=== PATIENT | male | born 1960 | race Caucasian/White ===

== ENCOUNTER → 2018-11-16 16:38 | Outpatient (CLI) | payer SELFPAY ==
[2018-11-16 17:48] LABS: Cholesterol 155 mg/dL (200); Creatinine, Serum 0.76 mg/dL (0.70-1.30); EST Glomerular Filtration Rate 112 mL/min (>60); Est Glom Filt Rate - Afr Amer 135 mL/min (>60)
== END ==
PROVIDERS: Family Provider Family Medicine; PCP Family Medicine; Referring Provider Family Medicine; Visit Provider Family Medicine
DX: I10 Essential (primary) hypertension (principal)
CPT/HCPCS: 36415; 82465; 82565; 84132

== ENCOUNTER → 2019-10-04 16:31 | Outpatient (CLI) | payer SELFPAY ==
[2019-10-04 18:11] LABS: Creatinine, Serum 0.75 mg/dL (0.70-1.30); EST Glomerular Filtration Rate 113 mL/min (>60); Est Glom Filt Rate - Afr Amer 137 mL/min (>60)
== END ==
PROVIDERS: PCP Family Medicine; Referring Provider Family Medicine; Visit Provider Family Medicine
DX: I10 Essential (primary) hypertension (principal)
CPT/HCPCS: 36415; 82565; 84132

== ENCOUNTER 2022-07-24 01:07 | Emergency (ER) | payer OTHER, SELFPAY ==
[2022-07-24 01:07] VITALS: BP 189/115; PULSE 95; RESP 18; TEMP 36.8; O2SAT 96; BMI 22.7
[2022-07-24 01:15] VITALS: BP 183/99; PULSE 93; RESP 13; O2SAT 98
--- NOTE | 2022-07-24 01:34 | EKG12_ITS ---
Test Reason : CP Blood Pressure : / mmHG Vent. Rate : 091 BPM Atrial Rate : 091 BPM P-R Int : 172 ms QRS Dur : 088 ms QT Int : 344 ms P-R-T Axes : 078 -83 069 degrees QTc Int : 423 ms Normal sinus rhythm Left axis deviation Low voltage QRS Abnormal ECG Confirmed by OCDEY WILLIS, MANDY ([id number]), senior editor HOLLEY MOLINA ([id number]) on 07/27/2022 11:55:57 AM Referred By: WERNER Confirmed By:MANDY ALEGRE MD
--- NOTE | 2022-07-24 01:34 | CT_ITS ---
EXAM: CT ANGIOGRAPHY CHEST, ABDOMEN AND PELVIS WITH INTRAVENOUS CONTRAST CLINICAL INDICATION: ? Dissection TECHNIQUE: Helically acquired angiography images were obtained of the chest, abdomen and pelvis with intravenous contrast. This CT exam was performed using one or more of the following dose reduction techniques: automated exposure control, adjustment of the mA and/or kV according to patient size, and/or use of iterative reconstruction technique. This report was created using [employer] report generation technology. MIP reconstructed images were created and reviewed. CONTRAST: IV 100mL [id number] RADIATION DOSE: Total DLP: 769.58 mGy-cm. COMPARISON: None. FINDINGS: VASCULATURE: AORTA: Minimally calcific thoracic aorta. Mild-moderate atherosclerotic calcification of the abdominal aorta. Normal in caliber. No dissection. PULMONARY ARTERIES: Unremarkable. Normal in caliber. No obvious central pulmonary embolism although this study was not performed with the pulmonary embolism protocol. GREAT VESSELS OF AORTIC ARCH: Unremarkable. Normal in caliber. No dissection. CELIAC TRUNK AND MESENTERIC ARTERIES: Calcified plaque near the origin of the celiac axis does not cause hemodynamically significant stenosis. No acute findings. No occlusion or significant stenosis. No dissection. Very small caliber BLAS which enhances normally. RENAL ARTERIES: No acute findings. No occlusion or significant stenosis. No dissection. ILIAC ARTERIES: Extensive atherosclerotic calcification within the common, external iliac and internal iliac arteries. Less than 50% stenosis of the common iliac and external iliac arteries by calcified plaques. Greater than 50% stenosis at the origin of both internal iliac arteries. Calcified plaques also less than 50 % stenosis of the common femoral arteries. The visualized superficial and deep femoral arteries show no hemodynamically significant stenosis. CHEST: LUNGS AND PLEURAL SPACES: Pulmonary emphysema, including numerous emphysematous blebs and bullae within the upper lungs. Peribronchial cuffing bilaterally, indicating bronchial wall inflammation. Calcified granulomas. Tiny circumscribed noncalcified nodule abutting the posterior-lateral pleura of the right lower lobe, consistent with a benign noncalcified granuloma, which requires no follow-up. No consolidation or edema. No pleural effusion or thickening. No pneumothorax. HEART: Extensive coronary artery calcification. Heart size is normal. No significant pericardial effusion. MEDIASTINUM: Findings of remote granulomatous infection. No mediastinal or hilar adenopathy. Esophagus is unremarkable. No hiatal hernia. THYROID: Solitary circumscribed 8 mm hypoattenuating nodule in the left thyroid lobe, which requires no follow-up. ABDOMEN: LIVER: Fatty infiltration. Portal veins and hepatic veins enhance normally. Homogeneous. No focal mass. GALLBLADDER AND BILE DUCTS: Unremarkable. No calcified gallstones. No gallbladder distention or wall edema. No intra- or extrahepatic biliary ductal dilation. PANCREAS: Unremarkable. No focal cystic or solid mass. SPLEEN: Unremarkable. Normal size without focal cystic or solid mass. ADRENALS: Unremarkable. No nodules. KIDNEYS AND URETERS: Unremarkable. Normal renal size and position. No hydronephrosis. No renal or obstructing ureteral stones. STOMACH AND BOWEL: Unremarkable. No stomach or bowel distention. No focal inflammatory change. PELVIS: APPENDIX: Normal. No evidence of acute appendicitis. BLADDER: Base of the bladder is indented by the prostate gland. Bladder wall is not thickened. REPRODUCTIVE: Prostate gland measures 4.8 cm in diameter. No mass. CHEST, ABDOMEN and PELVIS: INTRAPERITONEAL SPACE: Unremarkable. No ascites or other fluid collection. No free air. BONES/JOINTS: No suspicious lytic or blastic abnormality. No acute fracture. Lower lumbar facet arthritis. Degenerative narrowing of the mid thoracic disc spaces with surrounding osteophytes. 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 SOFT TISSUES: Unremarkable. No discrete abdominal or pelvic wall hernia. LYMPH NODES: Unremarkable. No enlarged lymph nodes. CT/CTA Chst, Abd, Pel W and/or WO IMPRESSION: No aortic aneurysm or dissection. Negative for PE. Findings of pulmonary emphysema and bronchitis. No pneumonia. Extensive coronary artery calcification. No acute intra-abdominal abnormality. Electronically Signed: Hayes Lechuga MD at 2:59 EST ,
[2022-07-24] MEDS: 0.9% Normal Saline 1,000 ML 999 ML IV (01:41)
[2022-07-24] MEDS: Morphine 4 MG/ML Syringe IV (01:42)
[2022-07-24] MEDS: Ondansetron 4 MG/2 ML Vial IV (01:42)
--- NOTE | 2022-07-24 01:47 | EDS_ITS ---
HPI History of Present Illness Chief Complaint: Chest Pain Narrative Narrative: Patient is a 61-year-old male with past medical history of hypertension hyperlipidemia and smoking and presbycusis. He states he went to bed around 9 PM this evening and fell asleep wearing a shirt. He states he woke up at 11 and as he was taking his shirt off developed sharp pain in his mid upper back. He states within about 10 minutes he began to shoot through his back into his chest and then up towards his neck. He states that the pain has been persistent for about 2 hours now and he is concerned about possible heart attack. He states that there is been no nausea vomiting diaphoresis or shortness of breath associated with this. [facility] Medical History Hypertension Home Medications lisinopril 5 mg tablet 5 mg PO DAILY 07/24/22 [History Last Taken Unknown] Allergy/AdvReac Type Severity Reaction Status Date / Time No Known Allergies Allergy Verified 07/24/22 01:09 Social History Smoking Status: Current every day smoker tobacco type: cigarettes ROS ROS ED Constitutional Constitutional ED: Denies chills or fever(s) ENT ENT ED: Denies sore throat Cardiovascular Cardiovascular: Reports chest pain; Denies palpitations or racing heartbeat Respiratory/Chest Respiratory/Chest: Denies cough or dyspnea Gastrointestinal Gastrointestinal: Denies abdominal pain, diarrhea, nausea or vomiting Genitourinary Genitourinary ED: Denies dysuria Musculoskeletal Musculoskeletal: Reports back pain; Denies myalgias Integumentary Denies rash Neurologic Neurologic: Denies headache(s) Hematologic/Lymphatic Hematologic/Lymphatic: Denies easy bleeding or easy bruising EXAM Physical Exam Const Vital Signs: 07/24/22 01:07 07/24/22 01:07 07/24/22 01:13 Temperature 98.3 F Temperature Source Temporal Pulse Rate 95 Respiratory Rate 18 Respiratory Effort Short of Breath Blood Pressure 189/115 H Blood Pressure Mean 139 Pulse Ox 96 Oxygen Delivery Method Room Air 07/24/22 01:15 Temperature Temperature Source Pulse Rate 93 Respiratory Rate 13 Respiratory Effort Blood Pressure 183/99 H Blood Pressure Mean 127 Pulse Ox 98 Oxygen Delivery Method Room Air Positive well nourished and well developed General Appearance ED: well developed HEENT Reports moist mucous membranes HEENT Narrative: No tongue or lip swelling no oral lesions no secondary changes to suggest infection in the posterior pharynx Eyes PERRL and EOMs intact bilaterally Neck supple and no JVD Resp normal respiratory effort Resp Narrative: Breath sounds are diminished throughout with faint rhonchi in the bilateral bases consistent with smoking history but no signs of respiratory distress Cardio regular rate and regular rhythm Rate: other Other Details: Radial pulses are plus 2 out of 4 bilaterally are equal and symmetric Carotid pulses are equal and symmetric as well GI normal to inspection, nondistended, normoactive bowel sounds, non-tender and non-distended GI Narrative: No voluntary guarding or rigidity no pulsatile mass Auscultation: normoactive bowel sounds Palpation: soft Back/Spine Back/Spine Narrative: No bony deformity or step-off of the thoracic or lumbar spine no midline pain on palpation Extremity normal to inspection Extremity Narrative: No asymmetric edema no pitting edema negative Homans' sign bilaterally Neuro oriented x3 and CN's II-XII intact bilaterally Sensorium / Orientation: alert Psych mental status grossly normal Skin no rashes or lesions noted Skin Narrative: No overlying soft tissue skin changes to suggest trauma or infection MDM MDM MDM Narrative Medical decision making narrative: Patient presented to the ER hypertensive and was complaining of sudden onset chest pain that began in his upper back and went straight through into his chest. With this history there is concern he is having a dissection and secondary to basic labs and a CTA of the chest abdomen pelvis were obtained. With the possibility of bleeding I held off on providing aspirin as this could not be worsening his symptoms. EKG was sinus rhythm initial troponin was normal at 5 and the 2-hour delta stayed flat with only a one-point elevation to a value of 6. The patient CTA revealed no acute findings. His white count is elevated but as his CT reveals no acute infectious changes I feel this is stress response do not feel he needs further evaluated. On reevaluation the patient has reported resolution of his symptoms with IV hydration and morphine. His blood pressure is normalized as well. Therefore at this time as EKG and troponins indicate no signs of acute cardiac event and his CTA reveals no dissection PE or infection and has had improvement of symptoms he is otherwise safe for discharge. Lab Data Attestation: I reviewed the patient's lab results. Labs: Laboratory Results - last 24 hr 07/24/22 07/24/22 07/24/22 01:12 01:12 01:12 WBC 16.3 H RBC 4.87 Hgb 16.0 Hct 47.1 MCV 96.7 H MCH 32.9 H MCHC 34.0 RDW Std Deviation 42.8 RDW Coeff of Rosalie 11.9 Plt Count 301 MPV 9.2 Immature Gran % (Auto) 0.500 Neut % (Auto) 58.4 Lymph % (Auto) 28.3 Hockley % (Auto) 8.8 Eos % (Auto) 3.3 Baso % (Auto) 0.7 Absolute Neuts (auto) 9.5 H Absolute Lymphs (auto) 4.60 H Nucleated RBC % 0 PT 12.7 INR 1.0 APTT 29.1 Sodium 141 Potassium 3.8 Chloride 106 Carbon Dioxide 28.0 Anion Gap 7 BUN 13 Creatinine 0.83 Estim Creat Clear Calc 92.27 Est GFR (MDRD) Af Amer 121 Est GFR (MDRD) Non-Af 100 BUN/Creatinine Ratio 15.7 Glucose 100 Calcium 9.5 Total Bilirubin 0.30 Direct Bilirubin 0.12 AST 22 ALT 21 Alkaline Phosphatase 66 Troponin I High Sens 5 Total Protein 8.0 Albumin 4.0 Globulin 4.0 Lipase 219 07/24/22 03:01 WBC RBC Hgb Hct MCV MCH MCHC RDW Std Deviation RDW Coeff of Rosalie Plt Count MPV Immature Gran % (Auto) Neut % (Auto) Lymph % (Auto) [place] % (Auto) Eos % (Auto) Baso % (Auto) Absolute Neuts (auto) Absolute Lymphs (auto) Nucleated RBC % PT INR APTT Sodium Potassium Chloride Carbon Dioxide Anion Gap BUN Creatinine Estim Creat Clear Calc Est GFR (MDRD) Af Amer Est GFR (MDRD) Non-Af BUN/Creatinine Ratio Glucose Calcium Total Bilirubin Direct Bilirubin AST ALT Alkaline Phosphatase Troponin I High Sens 6 Total Protein Albumin Globulin Lipase Radiography Diagnostic Testing: Clinical Impression(s) from Imaging Studies Chest/Abdomen/Pelvis CTA 07/24/22 01:34 IMPRESSION: No aortic aneurysm or dissection. Negative for PE. Findings of pulmonary emphysema and bronchitis. No pneumonia. Extensive coronary artery calcification. No acute intra-abdominal abnormality. Electronically Signed: Hayes Lechuga MD at 2:59 EST , Discharge Plan Triage Chief Complaint: Chest Pain ED Provider: Hayden Coleman Dx/Rx/DC Orders Clinical Impression: Nonspecific chest pain, GERD (gastroesophageal reflux disease), Hypertension Instructions: ED Chest Pain, Noncardiac, ED GERD (Adult) Prescriptions: No Action lisinopril 5 mg Tablet 5 mg PO DAILY Primary Care Provider: Quinten Inman Referrals: Quinten Inman MD [Primary Care Provider] - Activity Restrictions/Additional Instructions: Please continue your home medications as directed by your family doctor and return to the ER should you have any further concerns Disposition Disposition: Home, Self Care
[2022-07-24 01:52] LABS: Absolute Neutrophil Count 9.5 X10^3/uL (2.0-7.7); Basophil# 0.12 X10^3/uL; Basophil% 0.7 % (0-1); Eosinophil# 0.54 X10^3/uL; Eosinophils% 3.3 % (0-5); Hematocrit 47.1 % (40-54); Lymphocyte % 28.3 % (19-41); Mean Corpuscular Hgb 32.9 pg (27.0-32.0); Mean Corpuscular Volume 96.7 fL (80-94); Mean Platelet Vol. 9.2 fl (6.2-12.0); Monocyte# 1.44 X10^3/uL; Monocyte% 8.8 % (0-10); NRBC Flagged by Analyzer 0 % (0-5); Neutrophil % 58.4 % (47-70); Platelet Count 301 K/mm3 (150-450); RBC Distribution Width CV 11.9 % (11.6-14.6); RBC Distribution Width SD 42.8 fl (35.1-43.9); Red Blood Count 4.87 M/mm3 (4.6-6.2); White Blood Count 16.3 K/mm3 (4.4-11.0)
[2022-07-24 02:06] LABS: Prothrombin Time (Protime)PT. 12.7 SECONDS (11.7-14.9)
[2022-07-24 02:07] LABS: Partial Thromboplast Time 29.1 Seconds (24.1-36.2)
[2022-07-24 02:18] LABS: AST(SGOT) 22 U/L (15-37); Alanine Aminotransfer ALT/SGPT 21 U/L (16-61); Alkaline Phosphatase 66 U/L (45-117); Anion Gap 7 (5-15); BUN 13 mg/dL (7-18); BUN/Creat Ratio 15.7 RATIO (10-20); Bilirubin, Direct 0.12 mg/dL (0.00-0.30); Calcium,Total 9.5 mg/dL (8.5-10.1); Chloride 106 mmol/L (98-107); Creatinine, Serum 0.83 mg/dL (0.70-1.30); EST Glomerular Filtration Rate 100 mL/min (>60); Est Glom Filt Rate - Afr Amer 121 mL/min (>60); Estimated Creatinine Clearance 92.27 ml/min; Glucose 100 mg/dL (74-106); Lipase 219 U/L (73-393); Potassium 3.8 mmol/L (3.5-5.1); Sodium Level 141 mmol/L (136-145); Troponin-I HS 5 pg/mL (3.0-78.0)
[2022-07-24 03:29] LABS: Troponin-I HS 6 pg/mL (3.0-78.0)
[2022-07-24 03:40] VITALS: BP 117/82; PULSE 89; RESP 18; O2SAT 96
== END 2022-07-24 03:42 | disposition home or self-care (01) ==
PROVIDERS: Emergency Provider Emergency Medicine; PCP Family Medicine; Visit Provider Emergency Medicine
DX: R07.9 Chest pain, unspecified (principal); K21.9 Gastro-esophageal reflux disease without esophagitis; I10 Essential (primary) hypertension; F17.210 Nicotine dependence, cigarettes, uncomplicated; Z79.899 Other long term (current) drug therapy
CPT/HCPCS: 71275; 74174; 80048; 80076; 83690; 84484; 85025; 85610; 85730; 93005; 96374; 96375; 99283; J7030; Q9967; A4216; J2405

== ENCOUNTER → 2025-04-16 | Outpatient (CLI) | payer OTHER, SELFPAY ==
[2025-04-16 13:18] LABS: AST(SGOT) 21 U/L (<=37); Alanine Aminotransfer ALT/SGPT 8 U/L (<=46); Albumin, Serum 4.2 g/dL (3.4-4.8); Alkaline Phosphatase 65 U/L (40-129); Anion Gap 11 (5-15); BUN 8 mg/dL (4-19); BUN/Creat Ratio 12.7 RATIO (10-20); Calcium,Total 9.9 mg/dL (7.6-11.0); Carbon Dioxide 27.7 mmol/L (21.0-32.0); Chloride 101 mmol/L (98-108); Cholesterol 157 mg/dL (<=200); Globulin 2.9 g/dL (2.2-4.2); Glucose 85 mg/dL (70-99); Low Density Lipoprotein Calc. 78 mg/dL; Potassium 4.4 mmol/L (3.3-5.1); Triglycerides 53 mg/dL; Very Low Density Lipoprotein 11 mg/dL (5-40); cholesterol:hdl ratio screen 2.29
--- OUTSIDE RECORDS SUMMARY | 2025-04-16 17:12 | XMS RPT_ITS | CCD ---
Author Organization [facility] CliniSywi Care Team Providers Care It Architecture Consultant Name Role Phone McMorrow CONDUCTOR/ENGINEER, Andreas Attending Unavailable Quinten Inman Primary Care Unavailable Medications Current Medications Medication Drug Class(es) Dates Sig (Normalized) Sig (Original) lisinopril 5 mg oral tablet (1 source) Angiotensin Converting Enzyme Inhibitor Start: 07-24-2022 take 5 mg by mouth once daily Lisinopril Active 5 MG PO DAILY July 24, 2022 12:00am Problems Problem Classification Problem Date Documented Da te Episodic/Chronic Esophageal disorders (1 source) Gastroesophageal reflux disease; Translations: [Gastro-esophageal reflux disease without esophagitis] Chronic Essential hypertension (1 source) Hypertensive disorder; Translations: [Essential (primary) hypertension] Chronic Nonspecific chest pain (1 source) Chest pain; Translations: [Chest pain, unspecified] Episodic Results Test Name Value Interpretation Reference Range Facil ity Comprehensive Metabolic Prof martinez 04-16-2025 Albumin [Mass/Vol] 4.2 g/dL Normal 3.4-4.8 [facility] Comment on above: Order Comment: Order Date: 04/12/25 Order Info: [id number] - CMP Order Info: [id number] - LIPID Comments: screening for cholesterol screening for cholesterol Performed By: #### L [id number] #### [facility] [address] [place], [place], [id number] Albumin/Globulin [Mass ratio] 1.4 {ratio} Normal 0.9-2.4 [facility] Comment on above: Order Comment: Order Date: 04/12/25 Order Info: [id number] - CMP Order Info: [id number] - LIPID Comments: screening for cholesterol screening for cholesterol Performed By: #### L [id number] #### [facility] [address] [place], [address] ALK PHOS 65 U/L Normal 40-129 [facility] Comment on above: Order Comment: Order Date: 04/12/25 Order Info: [id number] - CMP Order Info: [id number] - LIPID Comments: screening for cholesterol screening for cholesterol Performed By: #### L [id number] #### [facility] [address] [place], [address] ALT [Catalytic activity/Vol] 8 U/L Normal <=46 [facility] Comment on above: Order Comment: Order Date: 04/12/25 Order Info: [id number] - CMP Order Info: [id number] - LIPID Comments: screening for cholesterol screening for cholesterol Performed By: #### L [id number] #### [facility] [address] [place], [address] AST [Catalytic activity/Vol] 21 U/L Normal <=37 [facility] Comment on above: Order Comment: Order Date: 04/12/25 Order Info: [id number] - CMP Order Info: [id number] - LIPID Comments: screening for cholesterol screening for cholesterol Performed By: #### L [id number] #### [facility] [address] [place], [address] Bilirubin [Mass/Vol] 0.36 mg/dL Normal 0.00-1.30 [facility] Comment on above: Order Comment: Order Date: 04/12/25 Order Info: [id number] - CMP Order Info: [id number] - LIPID Comments: screening for cholesterol screening for cholesterol Performed By: #### L [id number] #### [facility] [address] [place], [address] BUN/CRE 12.7 RATIO Normal 10-20 [facility] Comment on above: Order Comment: Order Date: 04/12/25 Order Info: [id number] - CMP Order Info: [id number] - LIPID Comments: screening for cholesterol screening for cholesterol Performed By: #### L [id number] #### [facility] [address] [place], [address] Calcium [Mass/Vol] 9.9 mg/dL Normal 7.6-11.0 [facility] Comment on above: Order Comment: Order Date: 04/12/25 Order Info: [id number] - CMP Order Info: [id number] - LIPID Comments: screening for cholesterol screening for cholesterol Performed By: #### L [id number] #### [facility] [address] [place], [address] Chloride [Moles/Vol] 101 mmol/L Normal 98-108 [facility] Comment on above: Order Comment: Order Date: 04/12/25 Order Info: [id number] - CMP Order Info: [id number] - LIPID Comments: screening for cholesterol screening for cholesterol Performed By: #### L [id number] #### [facility] [address] [place], [address] CO2 [Moles/Vol] 27.7 mmol/L Normal 21.0-32.0 [facility] Comment on above: Order Comment: Order Date: 04/12/25 Order Info: [id number] - CMP Order Info: [id number] - LIPID Comments: screening for cholesterol screening for cholesterol Performed By: #### L [id number] #### [facility] [address] [place], [address] Creatinine [Mass/Vol] 0.65 mg/dL Low 0.70-1.20 [facility] Comment on above: Order Comment: Order Date: 04/12/25 Order Info: [id number] - CMP Order Info: [id number] - LIPID Comments: screening for cholesterol screening for cholesterol Performed By: #### L [id number] #### [facility] [address] [place], [address] GAP 11 Normal 5-15 [facility] Comment on above: Order Comment: Order Date: 04/12/25 Order Info: [id number] - CMP Order Info: [id number] - LIPID Comments: screening for cholesterol screening for cholesterol Performed By: #### L [id number] #### [facility] [address] [place], [address] GFR/1.73 sq M.predicted among non-blacks MDRD (S/P/Bld) [Vol rate/Area] 105 mL/min/{1.73_m2} Normal >60 [facility] Comment on above: Order Comment: Order Date: 04/12/25 Order Info: [id number] - CMP Order Info: [id number] - LIPID Comments: screening for cholesterol screening for cholesterol Result Comment: mL/m in/1.73m2 CKD-EPI Creatinine Equation (2020) Performed By: #### L [id number] #### [facility] [address] [place], [address] Globulin (S) [Mass/Vol] 2.9 g/dL Normal 2.2-4.2 [facility] Comment on above: Order Comment: Order Date: 04/12/25 Order Info: [id number]- - CMP Order Info: [id number] - LIPID Comments: screening for cholesterol screening for cholesterol Performed By: #### L [id number] #### [facility] [address] [place], [address] Glucose [Mass/Vol] 85 mg/dL Normal 70-99 [facility] Comment on above: Order Comment: Order Date: 04/12/25 Order Info: [id number] - CMP Order Info: [id number] - LIPID Comments: screening for cholesterol screening for cholesterol Performed By: #### L [id number] #### [facility] [address] [place], [address] Potassium [Moles/Vol] 4.4 mmol/L Normal 3.3-5.1 [facility] Comment on above: Order Comment: Order Date: 04/12/25 Order Info: [id number] - CMP Order Info: [id number] - LIPID Comments: screening for cholesterol screening for cholesterol Performed By: #### L [id number] #### [facility] [address] [place], [address] Sodium [Moles/Vol] 140 mmol/L Normal 133-145 [facility] Comment on above: Order Comment: Order Date: 04/12/25 Order Info: [id number] - CMP Order Info: [id number] - LIPID Comments: screening for cholesterol screening for cholesterol Performed By: #### L [id number] #### [facility] [address] [place], [address] T PROT 7.1 g/dL Normal 5.9-8.4 [facility] Comment on above: Order Comment: Order Date: 04/12/25 Order Info: [id number] - CMP Order Info: [id number] - LIPID Comments: screening for cholesterol screening for cholesterol Performed By: #### L [id number] #### [facility] [address] [place], [address] Urea nitrogen [Mass/Vol] 8 mg/dL Normal 4-19 [facility] Comment on above: Order Comment: Order Date: 04/12/25 Order Info: [id number] - CMP Order Info: [id number] - LIPID Comments: screening for cholesterol screening for cholesterol Performed By: #### L [id number] #### [facility] [address] [place], [address] Hemoglobin A1con 04-16-2025 HbA1c (Bld) [Mass fraction] 5.9 % High <=5.6 [facility] Comment on above: Order Comment: Order Date: 04/12/25 Order Info: [id number] - A1C Result Comment: Norm al < 5.7 % Prediabetic 5.7 - 6.4 % Diabetic >or= 6.5 % Please note range changes. Performed By: #### L 501.9985 #### [facility] [address] [place], [address] Lipid Profileon 04-16-2025 CHOL:HDL 2.29 Normal [facility] Comment on above: Order Comment: Order Date: 04/12/25 Order Info: [id number] - CMP Order Info: [id number] - LIPID Comments: screening for cholesterol Performed By: #### L 500.4100 #### [facility] [address] [place], [place], [id number] ([address]) Cholesterol [Mass/Vol] 157 mg/dL Normal <=200 [facility] Comment on above: Order Comment: Order Date: 04/12/25 Order Info: [id number]- - CMP Order Info: [id number] - LIPID Comments: screening for cholesterol Result Comment: Chol esterol level, Desirable <200 mg/dL Borderline high cholesterol 200-239 mg/dL High cholesterol >=240 mg/dL Recommendations of the NCEP Adult Treatment Panel for the following risk-cutoff thresholds for the [place] population. Performed By: #### L 500.4100 #### [facility] [address] [place], [address] (865) Cholesterol in HDL [Mass/Vol] 69 mg/dL Normal [facility] Comment on above: Order Comment: Order Date: 04/12/25 Order Info: [id number]- - CMP Order Info: [id number] - LIPID Comments: screening for cholesterol Result Comment: Cyndie onal Cholesterol Education Program (NCEP) guidelines: <40 mg/dL: Low HDL-cholesterol (major risk factor for CHD) >= 60 mg/dL: High HDL-cholesterol (negative risk factor for CHD) HDL-cholesterol is affected by a number of factors, e.g. smoking, exercise, hormones, sex and age. Performed By: #### L [id number] #### [facility] [address] [place], [place], [id number] (317) Cholesterol in LDL [Mass/Vol] 78 mg/dL Normal [facility] Comment on above: Order Comment: Order Date: 04/12/25 Order Info: [id number] - CMP Order Info: [id number] - LIPID Comments: screening for cholesterol Result Comment: Bord nkdwdn=715-711 mg/dL Higher Dxsd=695 mg/dL or greater Friedwald Equation for LDL-C Performed By: #### L [id number] #### [facility] [address] [place], [place], [address] Cholesterol in VLDL [Mass/Vol] 11 mg/dL Normal 5-40 [facility] Comment on above: Order Comment: Order Date: 04/12/25 Order Info: [id number] - CMP Order Info: [id number] - LIPID Comments: screening for cholesterol Performed By: #### L [id number] #### [facility] [address] [place], [address] Triglyceride [Mass/Vol] 53 mg/dL Normal [facility] Comment on above: Order Comment: Order Date: 04/12/25 Order Info: [id number] - CMP Order Info: [id number] - LIPID Comments: screening for cholesterol Result Comment: The drugs N-Acetylcysteine and Metamizole may falsely depress this assay. Normal range: <150 mg/dL Borderline High: 150-199 mg/dL High: 200-499 mg/dL Very High: >500 mg/dL Performed By: #### L 500.4100 #### [facility] [address] [place], [place], [address] [phone] Absolute lymphocyte counton 07-24-2022 Lymphocytes Auto (Unsp spec) [#/Vol] 4.60 10*3/uL 0.83-4.51 [facility] Work Phone: Basophil percentageon 2021 Basophils/100 WBC (Bld) 0.7 % 0-1 [facility] Work Phone: Bilirubin [Mass/Vol] 0.30 mg/dL 0.20-1.00 [facility] Work Phone: Comment on above: For patients on eltr ombopag therapy, use of Dimension [place] TBIL is not recommended. Chloride [Moles/Vol] 106 mmol/L 98-107 [facility] Work Phone: Eosinophils/100 WBC (Bld) 3.3 % 0-5 [facility] Work Phone: Glucose [Mass/Vol] 100 mg/dL 74-106 [facility] Work Phone: Comment on above: Fasting Glucose resu lt from 100 to 125 mg/dL suggests IMPAIRED HOMEOSTASIS per A.D.A. criteria. Neutrophils (Bld) [#/Vol] 9.5 10*3/uL 2.0-7.7 [facility] Work Phone: Neutrophils/100 WBC (Bld) 58.4 % 47-70 [facility] Work Phone: Potassium [Moles/Vol] 3.8 mmol/L 3.5-5.1 [facility] Work Phone: Protein [Mass/Vol] 8.0 g/dL 6.4-8.2 [facility] Work Phone: Sodium [Moles/Vol] 141 mmol/L 136-145 [facility] Work Phone: WBC (Bld) [#/Vol] 16.3 10*3/uL 4.4-11.0 [facility] Work Phone: Blood erythrocytes count (nu mber/volume)on 07-24-2022 RBC (Bld) [#/Vol] 4.87 10*6/uL 4.6-6.2 [facility] Work Phone: Blood hemoglobin measurement (mass/volume)on 07-24-2022 Hemoglobin (Bld) [Mass/Vol] 16.0 g/dL 13.0-16.5 [facility] Work Phone: Blood lymphocytes/100 leukoc yteson 07-24-2022 Lymphocytes/100 WBC (Bld) 28.3 % 19-41 [facility] Work Phone: Blood monocytes/100 leukocyt eson 07-24-2022 Monocytes/100 WBC (Bld) 8.8 % 0-10 [facility] Work Phone: Blood platelet mean volumeon 07-24-2022 Platelet mean volume (Bld) [Entitic vol] 9.2 fL 6.2-12.0 [facility] Work Phone: Determination of erythrocyte mean corpuscular volume (MCV)on 07-24-2022 MCV (RBC) [Entitic vol] 96.7 fL 80-94 [facility] Work Phone: Direct bilirubinon Bilirubin.direct [Mass/Vol] 0.12 mg/dL 0.00-0.30 [facility] Work Phone: Hematocrit Auto (Bld) [Volum e fraction]on 07-24-2022 Hematocrit (Bld) [Volume fraction] 47.1 % 40-54 [facility] Work Phone: INR in Blood by Coagulation assayon 07-24-2022 INR Coag (Bld) [Relative time] 1.0 {INR} [facility] Work Phone: Laboratory - Chemistry and C hemistry - challengeon 07-24-2022 ALP [Catalytic activity/Vol] 66 U/L 45-117 [facility] Work Phone: ALT [Catalytic activity/Vol] 21 U/L 16-61 [facility] Work Phone: CO2 [Moles/Vol] 28.0 mmol/L 21.0-32.0 [facility] Work Phone: Globulin (S) [Mass/Vol] 4.0 g/dL 2.2-4.2 [facility] Work Phone: Lipase [Catalytic activity/Vol] 219 U/L 73-393 [facility] Work Phone: Urea nitrogen/Creatinine [Mass ratio] 15.7 mg/mg 10-20 [facility] Work Phone: Laboratory - Coagulationon 1 09-23-2021 aPTT Coag (Bld) [Time] 29.1 s 24.1-36.2 [facility] Work Phone: PT Coag (PPP) [Time] 12.7 s 11.7-14.9 [facility] Work Phone: Laboratory - Hematology and Cell countson 07-24-2022 Erythrocyte distribution width (RBC) [Entitic vol] 42.8 fL 35.1-43.9 [facility] Work Phone: Erythrocyte distribution width (RBC) [Ratio] 11.9 % 11.6-14.6 [facility] Work Phone: Immature granulocytes/100 WBC (Bld) 0.500 % 0.0-0.9 [facility] Work Phone: Comment on above: IG% - Immature Granu locytes (promyelocytes, myelocytes and metamyelocytes) > 1% indicates that a LEFT SHIFT is Present. MCH (RBC) [Entitic mass] 32.9 pg 27.0-32.0 [facility] Work Phone: Nucleated RBC/100 WBC (Bld) [Ratio] 0 % 0-5 [facility] Work Phone: MCHC Auto (RBC) [Mass/Vol]on 07-24-2022 MCHC (RBC) [Mass/Vol] 34.0 g/dL 32-36 [facility] Work Phone: No Panel Informationon 07-24 Troponin I High Sensitivity 6 pg/mL 3.0-78.0 [facility] Work Phone: Comment on above: Please Note: New Carmen t Units and Gender Specific Reference Ranges. For more information see Policy Stat Procedure [place] High Sensitivity Troponin (TNIH) and attachments. Estimated Creatinine Clearance Calc 92.27 ml/min [facility] Work Phone: Estimated GFR (MDRD) Amer 121 mL/min >60 [facility] Work Phone: Comment on above: GFR Calc Estimated GFR (MDRD) Non-Af Amer 100 mL/min >60 [facility] Work Phone: Comment on above: Non- GFR Calc Platelets bldon 07-24-2022 Platelets (Bld) [#/Vol] 301 10*3/uL 150-450 [facility] Work Phone: Serum or plasma albumin clyde urement (mass/volume)on 07-24-2022 Albumin [Mass/Vol] 4.0 g/dL 3.2-5.0 [facility] Work Phone: Serum or plasma calcium clyde urement (mass/volume)on 07-24-2022 Calcium [Mass/Vol] 9.5 mg/dL 8.5-10.1 [facility] Work Phone: Serum or plasma creatinine m easurement (mass/volume)on 07-24-2022 Creatinine [Mass/Vol] 0.83 mg/dL 0.70-1.30 [facility] Work Phone: Comment on above: The validity of the calculated GFR & GFRAA in patients over 70 years has not been determined. Clinical correlation is essential. Serum or plasma urea nitroge n measurement (mass/volume)on 07-24-2022 Urea nitrogen [Mass/Vol] 13 mg/dL 7-18 [facility] Work Phone: Thin prep Papanicolaou smear with manual screeningon 07-24-2022 Thin prep Papanicolaou smear with manual screening 22 U/L 15-37 [facility] Work Phone: Thin prep Papanicolaou smear with manual screening 7 5-15 [facility] Work Phone: Vital Signs Date Time Vital Sign Value Performing Clinician Faci jyothiy 07-24-2022 03:40-0500 Diastolic blood pressure 82 mm[Hg] [facility] Work Phone: 07-24-2022 03:40-0500 Heart rate 89 /min [facility] Work Phone: 07-24-2022 03:40-0500 Respiratory rate 18 /min [facility] Work Phone: 07-24-2022 03:40-0500 SaO2% (BldA) [Mass fraction] 96 % [facility] Work Phone: 07-24-2022 03:40-0500 Systolic blood pressure 117 mm[Hg] [facility] Work Phone: 07-24-2022 01:07-0500 Body height 175.26 cm [facility] Work Phone: 07-24-2022 01:07-0500 Body mass index (BMI) [Ratio] 22.7 kg/m2 [facility] Work Phone: 07-24-2022 01:07-0500 Body temperature 98.3 [degF] [facility] Work Phone: 07-24-2022 01:07-0500 Body weight 69.8 kg [facility] Work Phone: Encounters Encounter Date Encounter Type Care Provider Facility Start: [facility]INE[facility] Start: 07-24-2022 End: 07-24-2022 Emergency department patient visit [facility]gency [facility] Procedures Date Procedure Procedure Detail Performing Clinician Start: 07-24-2022 CT of thorax, abdome n and pelvis with contrast Plan of Treatment Date Care Activity Detail Author Patient Education ED Chest Pain, Noncardiac ED GERD (Adult) [facility] Work Phone: Patient referral [facility] Work Phone: Payers Date Payer Category Payer Private Health Insurance [id number] 2025 Self-pay [id number] 2008 Private Health Insurance [employer] [id number] Unknown [id number] Social History Date Type Detail Facility Start: 07-24-2022 Tobacco smoking stat [facility] Unknown if ever smoked [facility] Work Phone: Start: 1960 Sex Assigned At Male [facility] Work Phone: Mental Status Date Assessment Result Facility 07-24-2022 Cognitive function Voice/Name [facility] Work Phone: Evaluation note Note Date & Type Note Facility Evaluation note No assessment information availa ble [facility] Work Phone: Hospital Discharge instructions Note Date & Type Note Facility Hospital Discharge instructions Additional Instructions Please continue your home medications as directed by your family doctor and return to the ER should you have any further concerns [facility] Work Phone: Chief Complaint and Reason for Visit Chief Complaint CHEST PAIN Advance Directives No Advanced Directives Records Found Advance Directive Response Recorded Date/ Time Living Will No July 24 1:11am Power of Head Gauge Unit Operator No July 24, 2022 1:11am Summary Purpose Family History No Family History Records Found Additional Source Comments Goals (unrecognized section and content) Goals may be documented in a n alternate section (unrecognized sect ion and content) No Status Records Found INFORMATION SOURCE (unrecogn ized section and content) DATE CREATED AUTHOR 04/16/2025 [facility] FOR RECORDS PERTAINING TO PATIENTS WHO ARE OR HAVE BEEN ENROLLED IN A CHEMICAL DEPENDENCY/SUBSTANCEABUSE PROGRAM, SOME INFORMATION MAY BE OMITTED. This clinical summary was aggregated from multiple sources. Caution should be exercised in using it in the provision of clinical care. This summary normalizes information from multiple sources, and as a consequence, information in this document may materially change the coding, format and clinical context of patient data. In addition, data may be omitted in some cases. CLINICAL DECISIONS SHOULD BE BASED ON THE PRIMARY CLINICAL RECORDS. [facility]. provides no warranty or guarantee of the accuracy or completeness of information in this document.
== END | disposition home or self-care (01) ==
LOC: MFPLAB 08:15
PROVIDERS: PCP Family Medicine
DX: Z13.1 Encounter for screening for diabetes mellitus (principal); Z13.220 Encounter for screening for lipoid disorders
CPT/HCPCS: 36415; 80053; 80061; 83036